=== PATIENT | female | born 1940 | race Caucasian/White ===

== ENCOUNTER → 2018-11-08 | Outpatient (CLI) | payer MEDICARE, OTHER ==
[2018-11-08 15:00] LABS: HCT 44.7 % (34.0-46.0); HGB 13.9 gm/dL (11.4-16.0); Hypochromasia Slight; MCH 29.2 pg (25.0-35.0); MCHC 31.2 g/dL (31.0-37.0); MCV 93.5 fL (80.0-100.0); Mean Platelet Volume 7.2; Platelet Count 372 k/uL (150-450); RBC 4.78 m/uL (3.80-5.40); RDW 14.4 % (11.5-15.5); WBC 7.3 k/uL (3.8-10.6)
[2018-11-08 20:06] LABS: Anion Gap 7.2 mmol/L (4.00-12.00); Carbon Dioxide 26.8 mmol/L (21.6-31.8); Potassium 4.3 mmol/L (3.5-5.5)
== END | disposition home or self-care (01) ==
LOC: LABWHC1 14:03
PROVIDERS: ATTEND Internal Medicine Interventional Cardiology
DX: Z01.812 Encounter for preprocedural laboratory examination (principal); I25.10 Atherosclerotic heart disease of native coronary artery without angina pectoris; I10 Essential (primary) hypertension
CPT/HCPCS: 36415; 80051; 82565; 84520; 85027

== ENCOUNTER 2018-11-25 10:43 | Day surgery (SDC) | payer MEDICARE, OTHER ==
[~2018-11-25 10:43] MED LIST: ALPRAZolam 0.25 MG TAB PO PRN; ALPRAZolam 0.5 MG TAB PO PRN; ASPIRIN 325 MG TAB PO STA; ATORVASTATIN 80 MG TAB PO STA; NITROGLYCERIN SL TABS 0.4 MG TAB SUBLINGUAL PRN; SODIUM CHLORIDE 0.9% 1,000 ML in EMPTY BAG 1 BAG IV ONE
[2018-11-25] MEDS ORDERED: VERAPAMIL 2.5 MG/ML 2 ML AMP ONE (12:43)
[2018-11-25] MEDS ORDERED: HEPARIN SODIUM 1,000 UN/ML (10ML VL) ONE (12:43)
[2018-11-25] MEDS ORDERED: LIDOCAINE 1% INJ 10MG/ML (20 ML MDV) ONE (12:43)
[2018-11-25] MEDS: MIDAZOLAM 2 MG/2 ML VIAL IVP ONE ×2 (13:05→13:14)
[2018-11-25] MEDS ORDERED: LIDOCAINE 1% INJ 10MG/ML (20 ML MDV) SQ ONE (13:14)
[2018-11-25] MEDS ORDERED: BIVALIRUDIN BOLUS 250 MG/50 ML IV ONE (13:36)
[2018-11-25] MEDS ORDERED: BIVALIRUDIN 250 MG in SODIUM CHLORIDE 0.9% 50 ML IV ONE (13:38)
[2018-11-25] MEDS: NITROGLYCERIN 1000MCG/10ML SYRINGE INTRACORON ONE ×3 (13:41→13:48)
[2018-11-25] MEDS ORDERED: IOPAMIDOL-370 100ML BTL INJ ONE ×2 (13:44→14:00)
[2018-11-25] MEDS ORDERED: CLOPIDOGREL 75 MG TAB ONE (13:50)
[2018-11-25] MEDS ORDERED: ZOLPIDEM 5 MG TAB PO PRN (13:52)
[2018-11-25] MEDS ORDERED: MAG HYDROX/AL HYDROX/SIMETH 30 ML CUP PO PRN (13:52)
[2018-11-25] MEDS ORDERED: RX INFO: IV CONTRAST WAS GIVEN 1 EACH MISC MISCELLANE PRN (13:52)
[2018-11-25] MEDS ORDERED: NITROGLYCERIN SL TABS 0.4 MG TAB SUBLINGUAL PRN (13:52)
[2018-11-25] MEDS ORDERED: ATROPINE SULFATE 0.1 MG/ML 10ML SYRINGE IV PRN (13:52)
[2018-11-25] MEDS ORDERED: CLOPIDOGREL 75 MG TAB PO ONE (13:55)
[2018-11-25] MEDS ORDERED: SODIUM CHLORIDE 0.9% 1,000 ML IV SCH (14:00)
[2018-11-25 14:50] VITALS: BMI 26.1
--- NOTE | 2018-11-25 17:58 | CC ---
CARDIAC CATHETERIZATION REPORT DATE OF SERVICE: November 25, 2018 PERFORMING PHYSICIAN: Herber Larson M.D., hand ii blocker. PROCEDURE PERFORMED: 1. Selective left and right coronary angiogram. 2. SVG to diagonal/LAD angiogram. 3. Successful stenting of the mid left circumflex using 2.0 x 12 mm drug-eluting stent with good angiographic results. Reduction of stenosis from 70% to 0%. INDICATION: This is a 78-year-old female patient with history of coronary artery disease and prior coronary artery bypass grafting as well as coronary artery stenting who was experiencing symptoms of exertional dyspnea. She underwent a heart catheterization, which showed inferolateral ischemia and because of that, heart catheterization was advised. APPROACH: Right common femoral artery. COMPLICATIONS: None. LEVEL OF SEDATION: Moderate with sedation length of 38 minutes. PROCEDURE DESCRIPTION: After obtaining an informed consent, the patient was brought to cardiac garage laborer. The right common femoral artery was cannulated using micropuncture technique, the micropuncture wire passed easily. Then I placed a 6-Luxembourger sheath in the right common femoral artery. After that I did selective left and right coronary angiogram using JL4 and JR4 catheters. Left heart catheterization what was not performed. SVG to LAD/diagonal angiogram was performed using the JR4 catheter. At that point, I did intervene on the left circumflex. Please see a separate paragraph for that. SELECTIVE CORONARY ANGIOGRAM: 1. The left main appeared to be angiographically normal. It bifurcates into LAD and left circumflex. 2. The LAD is critically diseased in the proximal portion. 3. The LCX has a tight lesion in the midportion appeared to be in the range of 70%. 4. The right coronary artery is stented in the midportion and the stent is patent. 5. The SVG to diagonal/LAD appeared to be patent. PCI OF THE LEFT CIRCUMFLEX: Anticoagulation was initiated using Angiomax. Subsequently I did engage the left main using XB 35 guide. I did wire the left circumflex using a whisper wire. After that, I did balloon angioplasty using 2.0 x 12 mm balloon before I deployed 2.0 x 12 mm [place] drug-eluting stent where the stent was positioned under fluoroscopy guidance and deployed under 12 atmospheres for 20 seconds with the following angiogram showing good angiographic results. The procedure was completed without any complication. CONCLUSION: 1. Severe triple-vessel coronary artery disease. 2. Patent SVG to diagonal/LAD. 3. Patent stent in the mid RCA. 4. Successful stenting of the mid left circumflex using 2.0 x 12 mm [place] drug-eluting stent with an excellent angiographic results. POSTPROCEDURE MANAGEMENT: 1. Maximize medical treatment. 2. Dual anti-platelet therapy. 3. Follow up with the patient. MMODL / IJN: [id number] /
--- NOTE | 2018-11-25 17:58 | LTR ---
November 25, 2018 To: Dr. Ian Montanez Re: Aurelia Jackcock (1940) Dear Dr. Montanez, Ms. Aurelia Beckwith underwent successful stenting of the left circumflex with good angiographic results and without any complication. Thank you for allowing us to participate in her care. Please do not hesitate to call if you have any question or concern. Sincerely, Herber Lrason M.D. ORACIO / AMI: [id number] /
[2018-11-26 00:14] VITALS: TEMP 98.9
[2018-11-26 05:33] VITALS: RESP 16
[2018-11-26 07:17] LABS: Basophils % (A) 0 %; Eosinophils # (A) 0.4 k/uL (0-0.7); Eosinophils % (A) 5 %; HCT 40.3 % (34.0-46.0); Lymphocytes # (A) 0.9 k/uL (1.0-4.8); Lymphocytes % (A) 13 %; MCHC 32.3 g/dL (31.0-37.0); Mean Platelet Volume 6.9; Monocytes # (A) 0.4 k/uL (0-1.0); Monocytes % (A) 5 %; Neutrophils # (A) 5.3 k/uL (1.3-7.7); Neutrophils % (A) 76 %; Platelet Count 382 k/uL (150-450); RBC 4.48 m/uL (3.80-5.40); RDW 14.5 % (11.5-15.5)
[2018-11-26 07:34] LABS: Anion Gap 5 mmol/L; Blood Urea Nitrogen 12 mg/dL (7-17); Carbon Dioxide 27 mmol/L (22-30); Chloride 106 mmol/L (98-107); Glucose 84 mg/dL (74-99); Potassium 4.1 mmol/L (3.5-5.1); Sodium 138 mmol/L (137-145)
[2018-11-26] MEDS ORDERED: ASPIRIN 325 MG TAB PO STA (08:54)
[2018-11-26] MEDS ORDERED: CLOPIDOGREL 75 MG TAB PO SCH (09:00)
--- NOTE | 2018-11-26 09:33 | DS ---
DISCHARGE SUMMARY DATE OF SERVICE: 11/26/2018 BRIEF HISTORY: This is a pleasant 78-year-old female patient who was experiencing shortness of breath with exertion and underwent myocardial perfusion imaging stress test and that revealed inferolateral ischemia. She was admitted to the hospital yesterday and underwent an angiogram which revealed patent stent in the right coronary artery with severe disease involving the obtuse marginal branch of the left circumflex, which revealed severe disease involving the left circumflex, which was stented with good angiographic results and without any complication. The patient is going to be discharged on dual anti-platelet therapy and I will follow up with the patient in the office. MMODL / IJN: [id number] /
[2018-11-26 10:16] VITALS: BP 110/58; PULSE 75
== END 2018-11-26 09:45 | disposition home or self-care (01) ==
LOC: CATHCVL 10:43 → 3SCARD 13:50 → CATHCVL 11-26 09:45
PROVIDERS: ATTEND Internal Medicine Interventional Cardiology
DX: I25.110 Atherosclerotic heart disease of native coronary artery with unstable angina pectoris (principal); I10 Essential (primary) hypertension; E78.00 Pure hypercholesterolemia, unspecified; Z95.1 Presence of aortocoronary bypass graft; Z95.5 Presence of coronary angioplasty implant and graft; E78.5 Hyperlipidemia, unspecified; Z87.891 Personal history of nicotine dependence; I08.0 Rheumatic disorders of both mitral and aortic valves; I65.21 Occlusion and stenosis of right carotid artery; Z79.82 Long term (current) use of aspirin; Z79.890 Hormone replacement therapy; Z79.899 Other long term (current) drug therapy
CPT/HCPCS: 93455; 80048; 85025; C9600; C1760; C1769 ×5; C1725; C1887; C1894 ×2; C1874; J2250; J2001; J0583; Q9967

== ENCOUNTER → 2019-06-03 | Outpatient (CLI) | payer MEDICARE ==
--- NOTE | 2019-06-03 12:43 | CT ---
EXAMINATION TYPE: CT chest w con DATE OF EXAM: 06/03/2019 COMPARISON: None HISTORY: 78-year-old female Abnormal findings of lung field TECHNIQUE: Contiguous axial scanning of the chest after the administration of 100 ml mL of Isovue 300 . Coronal/sagittal reconstructions performed. CT DLP: 336mGycm. Automatic exposure control utilized for a dose reduction. FINDINGS: Median sternotomy wires are present. Retained epicardial pacer leads. No skeletal changes. Ectatic ascending aorta 3.8 cm. Ectatic upper descending thoracic aorta 3.1 cm. Moderate atherosclero sis calcifications are present focal irregularity along the left lateral aspect of the mid aortic arc h measuring 2.2 cm, likely secondary to plaque ulceration. Refer to axial image 17. No surrounding in flammatory changes. Borderline to mildly enlarged caliber to the main right and left pulmonary arteries at 2.7 and 2.6 cm , respectively, without hydronephrosis. No thoracic lymphadenopathy by CT size criteria. Evaluation lungs show mild interstitial prominence. Stranding hazy areas of atelectasis or scarring at the lung bases. 3 mm peripheral right upper lobe pulmonary nodule, axial image 20. 3 mm calcified granuloma peripheral right mid lung, axial image 22. Larger calcified granuloma at the posterior left base. No consolidation or pleural effusion. Small hiatal hernia. Visualized upper abdomen shows numerous small hypodense lesions within the visu alized upper pole the left kidney, likely cortical cysts. Calcified granulomas within the spleen with out hilar splenule. Bones: Mild anterior wedging T6 has a chronic appearance. Moderate multilevel degenerative disc disea se especially mid thoracic spine. IMPRESSION: 1. Prior granulomatous disease. A 3 mm noncalcified right upper lobe pulmonary nodule may also relate to granulomatous disease. A 6-12 month follow-up is recommended to reassess. 2. Possible underlying pulmonary arterial hypertension. Clinically correlate. 3. Moderate atherosclerotic change throughout the aorta with a focal 2.2 cm area of irregularity manuel g the aortic arch, suspected focal plaque ulceration rather than penetrating atherosclerotic ulcer gi gena the lack of surrounding inflammatory change. Correlate with patient's symptoms.
== END | disposition home or self-care (01) ==
LOC: RADCTMAIN 08:28
PROVIDERS: ATTEND Family Medicine
DX: I70.0 Atherosclerosis of aorta (principal); R91.1 Solitary pulmonary nodule
CPT/HCPCS: 82565; 84520; 71260; 36415; Q9967

== ENCOUNTER 2019-09-28 17:59 | Inpatient (IN) | payer MEDICARE ==
[2019-09-28] MEDS ORDERED: SODIUM CHLORIDE 0.9% 500 ML 500 ML IV STA (18:07)
[2019-09-28] MEDS ORDERED: SODIUM CHLORIDE 0.9% 1,000 ML IV STA ×2 (18:07)
--- NOTE | 2019-09-28 18:07 | ED ---
Neuro HPI - General Stated Complaint: CVA Time Seen by Provider: 09/28/19 18:03 Source: RN notes reviewed, old records reviewed - History of Present Illness Is the patient presenting with stroke symptoms?: Yes -: awoke with symptoms Initial Comments: This is an 79-year-old female DF for evaluation patient with us today for evaluation regarding neurological complaint patient is unable to give history unable to express herself unable to understand questioning from EMS patient was last seen well around 11 AM concerned maybe she was seen around 3 PM but that is difficult to ascertain currently. No family is at bedside and again patient we will give history. EMS was called because a neighbor found patient in the hallway not acting appropriately Location: speech, dysarthria, right arm, right leg History of same: Yes Place: home Severity: moderate Quality: weak Improves With: none Worsens With: none On Anticoagulants: Yes Context: gradual onset Associated Symptoms: denies other symptoms Treatments Prior to Arrival: none - Related Data Home Medications: Home Medications Medication Instructions Recorded Confirmed Aspirin 325 mg PO DAILY 10/28/15 11/25/18 Brimonidine Tartrate/Timolol 1 drop LEFT EYE Q12HR 10/28/15 11/25/18 [Combigan 0.2%/0.5% Ophth Soln] Cholecalciferol [Vitamin D3 (25 2,000 unit PO DAILY 10/28/15 11/25/18 Mcg = 1000 Iu)] Latanoprost Ophth [Xalatan 0.005%] 1 drops BOTH EYES HS 10/28/15 11/25/18 Levothyroxine Sodium [Synthroid] 100 mcg PO QAM 10/28/15 11/25/18 Lovastatin [Mevacor] 40 mg PO HS 10/28/15 11/25/18 Metoprolol Tartrate [Lopressor] 12.5 mg PO BID 10/28/15 11/25/18 Methazolamide [Neptazane] 50 mg PO BID 11/20/18 11/25/18 Previous Rx's Medication Instructions Recorded Clopidogrel [Plavix] 75 mg PO DAILY #90 tab 11/26/18 Allergies/Adverse Reactions: Allergies Allergy/AdvReac Type Severity Reaction Status Date / Time No Known Allergies Allergy Verified 11/20/18 10:23 Review of Systems ROS Statement: Those systems with pertinent positive or pertinent negative responses have been documented in the HPI. ROS Other: All systems not noted in ROS Statement are negative. General Exam - General Exam Comments Initial Comments: NIH of 15 General appearance: alert, in no apparent distress, anxious, in distress Head exam: Present: atraumatic, normocephalic, normal inspection Eye exam: Present: normal appearance, PERRL, EOMI. Absent: scleral icterus, conjunctival injection, periorbital swelling ENT exam: Present: normal exam, mucous membranes moist Neck exam: Present: normal inspection. Absent: tenderness, meningismus, lymphadenopathy Respiratory exam: Present: normal lung sounds bilaterally. Absent: respiratory distress, wheezes, rales, rhonchi, stridor Cardiovascular Exam: Present: regular rate, normal rhythm, normal heart sounds. Absent: systolic murmur, diastolic murmur, rubs, gallop, clicks GI/Abdominal exam: Present: soft, normal bowel sounds. Absent: distended, tenderness, guarding, rebound, rigid Extremities exam: Present: normal inspection, full ROM, normal capillary refill. Absent: tenderness, pedal edema, joint swelling, calf tenderness Back exam: Present: normal inspection Neurological exam: Present: alert, oriented X3, CN II-XII intact Psychiatric exam: Present: normal affect, normal mood Skin exam: Present: warm, dry, intact, normal color. Absent: rash Stroke MDM - Lab Data Result diagrams: 09/28/19 18:02 09/28/19 18:02 Lab Results 09/28/19 09/28/19 09/28/19 Range/Units 18:02 18:02 18:02 WBC 11.3 H (3.8-10.6) k/uL RBC 4.74 (3.80-5.40) m/uL Hgb 13.9 (11.4-16.0) gm/dL Hct 44.3 (34.0-46.0) % MCV 93.6 (80.0-100.0) fL MCH 29.3 (25.0-35.0) pg MCHC 31.3 (31.0-37.0) g/dL RDW 13.9 (11.5-15.5) % Plt Count 448 (150-450) k/uL Neutrophils % 80 % Lymphocytes % 13 % Monocytes % 4 % Eosinophils % 2 % Basophils % 0 % Neutrophils # 9.1 H (1.3-7.7) k/uL Lymphocytes # 1.4 (1.0-4.8) k/uL Monocytes # 0.4 (0-1.0) k/uL Eosinophils # 0.2 (0-0.7) k/uL Basophils # 0.1 (0-0.2) k/uL Hypochromasia Slight PT 10.0 (9.0-12.0) sec INR 1.0 (<1.2) APTT 22.1 (22.0-30.0) sec Sodium (137-145) mmol/L Potassium (3.5-5.1) mmol/L Chloride (98-107) mmol/L Carbon Dioxide (22-30) mmol/L Anion Gap mmol/L BUN (7-17) mg/dL Creatinine (0.52-1.04) mg/dL Est GFR (CKD-EPI)AfAm (>60 ml/min/1.73 sqM) Est GFR (CKD-EPI)NonAf (>60 ml/min/1.73 sqM) Glucose (74-99) mg/dL POC Glucose (mg/dL) (75-99) mg/dL POC Glu Extract Operator ID Calcium (8.4-10.2) mg/dL Total Bilirubin (0.2-1.3) mg/dL AST (14-36) U/L ALT (4-34) U/L Alkaline Phosphatase (38-126) U/L Total Creatine Kinase <20 L (30-135) U/L CK-MB (CK-2) <0.2 (0.0-2.4) ng/mL CK-MB (CK-2) Rel Index Troponin I <0.012 (0.000-0.034) ng/mL Total Protein (6.3-8.2) g/dL Albumin (3.5-5.0) g/dL 09/28/19 09/28/19 Range/Units 18:02 18:03 WBC (3.8-10.6) k/uL RBC (3.80-5.40) m/uL Hgb (11.4-16.0) gm/dL Hct (34.0-46.0) % MCV (80.0-100.0) fL MCH (25.0-35.0) pg MCHC (31.0-37.0) g/dL RDW (11.5-15.5) % Plt Count (150-450) k/uL Neutrophils % % Lymphocytes % % Monocytes % % Eosinophils % % Basophils % % Neutrophils # (1.3-7.7) k/uL Lymphocytes # (1.0-4.8) k/uL Monocytes # (0-1.0) k/uL Eosinophils # (0-0.7) k/uL Basophils # (0-0.2) k/uL Hypochromasia PT (9.0-12.0) sec INR (<1.2) APTT (22.0-30.0) sec Sodium 141 (137-145) mmol/L Potassium 4.0 (3.5-5.1) mmol/L Chloride 107 (98-107) mmol/L Carbon Dioxide 24 (22-30) mmol/L Anion Gap 10 mmol/L BUN 25 H (7-17) mg/dL Creatinine 0.99 (0.52-1.04) mg/dL Est GFR (CKD-EPI)AfAm 62 (>60 ml/min/1.73 sqM) Est GFR (CKD-EPI)NonAf 54 (>60 ml/min/1.73 sqM) Glucose 135 H (74-99) mg/dL POC Glucose (mg/dL) 112 H (75-99) mg/dL POC Glu Extract Operator ID Leigh Huddleston Calcium 9.8 (8.4-10.2) mg/dL Total Bilirubin 0.7 (0.2-1.3) mg/dL AST 25 (14-36) U/L ALT 7 (4-34) U/L Alkaline Phosphatase 63 (38-126) U/L Total Creatine Kinase (30-135) U/L CK-MB (CK-2) (0.0-2.4) ng/mL CK-MB (CK-2) Rel Index Troponin I (0.000-0.034) ng/mL Total Protein 6.8 (6.3-8.2) g/dL Albumin 3.9 (3.5-5.0) g/dL - NIH Stroke Scale 1a. Level of Consciousness: (0) alert 1b. LOC Questions: (2) answers no questions correctly 1c. LOC Commands: (2) performs no tasks correctly 2. Best Gaze: (0) normal 3. Visual: (0) no visual loss 4. Facial Palsy: (0) normal symmetrical movement 5a. Motor Arm Left: (3) no gravity effort 5b. Motor Arm Right: (0) no drift 6a. Motor Leg Left: (3) no gravity effort 6b. Motor Leg Right: (0) no drift 7. Limb Ataxia: (2) present 2 limbs 8. Sensory: (1) mild/moderate sensory loss 9. Best Language: (2) severe aphasia 10. Dysarthria: (1) mild/moderate dysarthria 11. Extinction/Inattention: (0) no abnormality - Thrombolytic Inclusion/Exclusion Thrombolytic Inclusion Criteria: Symptom Onset < 4.5 h, NIH Stroke Scale Deficit (15), Negative CT Scan for ICH - Medical Decision Making 79 female will be admitted for evaluation. Patient presents for stroke deficits, no TPA candidate secondary to age and onset. Patient will be admitted for brilenta and aspirin to have further neurological evaluation - Radiology Data Radiology results: report reviewed (CT brain CTa head neck negative for acute disaese, patient does have 5060 stenosis of carotid), image reviewed - EKG Data -: EKG Interpreted by Me (EKG shows A. fib rate of 76, QRS 84, QTc 443) Past Medical History Past Medical History: Coronary Artery Disease (CAD), Chest Pain / Angina, Eye Disorder, Hyperlipidemia, Hypertension, Thyroid Disorder Additional Past Medical History / Comment(s): 11/02/15 Pt admitted to floor s/p cardiac catheterization-PCI with stent to proximal RCA. Other HX: Intermittent chest discomfort with +stress test, macular degeneration L eye, bilateral caratid disease, L eye with very poor vision, current toothache. History of Any Multi-Drug Resistant Organisms: None Reported Past Surgical History: Appendectomy, Cholecystectomy, Coronary Bypass/CABG, Heart Catheterization, Heart Catheterization With Stent Additional Past Surgical History / Comment(s): 11/02/15 PCI with stent to RCA. Other surgical hx: 4 vessel CABG 2004 with LOPEZ to diagonal, SVG to OM, PDA and PLV, left cataract removed Past Anesthesia/Blood Transfusion Reactions: No Reported Reaction Date of Last Stent Placement:: 11/02/15 Additional Past Alcohol Use History / Comment(s): smokes 1 PPD - started smoking age 17 - Past Family History Mother Family Medical History: Diabetes Mellitus, Eye Disorder Additional Family Medical History / Comment(s): Mother had macular degeneration. She at age 60 yrs. Father Family Medical History: Coronary Artery Disease (CAD), Myocardial Infarction ([place]) Additional Family Medical History / Comment(s): Father of [place] at age 82 or 83 yrs. Course Vital Signs 09/28/19 09/28/19 18:07 19:00 Temperature 98.0 F 97.7 F Pulse Rate 65 81 Respiratory 16 18 Rate Blood Pressure 157/71 139/75 O2 Sat by Pulse 99 97 Oximetry - Reevaluation(s) Reevaluation #1: 09/28/19 19:07 Medical records reviewed Reevaluation #2: 09/28/19 19:07 Stroke was called on admission, patient was seen by stroke Reji no TPA candidate patient will be admitted for aspirin treatment and neurological treatment and evaluation - Consultations Consultation #1: spoke w EM will admit for evaluation and neuro evaluation Critical Care Time Critical Care Time: Yes Total Critical Care Time: 31 Disposition Clinical Impression: Cerebrovascular accident (CVA) Disposition: ADMITTED IP TO THIS [facility] Condition: Critical Is patient prescribed a controlled substance at d/c from ED?: No
[2019-09-28 18:13] LABS: Glucose,Whole Blood 112 mg/dL (75-99)
[2019-09-28 18:21] LABS: Basophils # (A) 0.1 k/uL (0-0.2); Basophils % (A) 0 %; Eosinophils # (A) 0.2 k/uL (0-0.7); Eosinophils % (A) 2 %; HCT 44.3 % (34.0-46.0); HGB 13.9 gm/dL (11.4-16.0); Hypochromasia Slight; Lymphocytes # (A) 1.4 k/uL (1.0-4.8); Lymphocytes % (A) 13 %; MCH 29.3 pg (25.0-35.0); MCHC 31.3 g/dL (31.0-37.0); MCV 93.6 fL (80.0-100.0); Mean Platelet Volume 7.6; Monocytes # (A) 0.4 k/uL (0-1.0); Monocytes % (A) 4 %; Neutrophils # (A) 9.1 k/uL (1.3-7.7); Neutrophils % (A) 80 %; Platelet Count 448 k/uL (150-450); RBC 4.74 m/uL (3.80-5.40); RDW 13.9 % (11.5-15.5); WBC 11.3 k/uL (3.8-10.6)
[2019-09-28 18:30] LABS: Albumin 3.9 g/dL (3.5-5.0); Calcium 9.8 mg/dL (8.4-10.2); Total Bilirubin 0.7 mg/dL (0.2-1.3); Total Protein 6.8 g/dL (6.3-8.2)
--- NOTE | 2019-09-28 18:31 | CT ---
EXAMINATION TYPE: CT brain wo con for TPA DATE OF EXAM: 09/28/2019 COMPARISON: None HISTORY: Neuro deficits. CT DLP: 1102.8 mGycm Automated exposure control for dose reduction was used. Multiple axial sections were obtained of the brain without contrast. There is dcerebral atrophy. This is mostly in the frontal and temporal lobes. There is no mass effect nor midline shift. There is no sign of intracranial hemorrhage. The calvarium is intact. IMPRESSION: Cerebral atrophy. No acute intracranial abnormality.
[2019-09-28 18:42] LABS: Creatine Kinase <20 U/L (30-135)
[2019-09-28 18:44] LABS: Partial Thromboplastin Time 22.1 sec (22.0-30.0)
[2019-09-28 18:54] LABS: Creatine Kinase MB <0.2 ng/mL (0.0-2.4); Troponin I <0.012 ng/mL (0.000-0.034)
--- NOTE | 2019-09-28 19:05 | CT ---
EXAMINATION TYPE: CT angio head neck DATE OF EXAM: 09/28/2019 COMPARISON: None HISTORY: Neuro deficits CT DLP: mGycm Automated exposure control for dose reduction was used. CONTRAST: Performed , patient injected with mL of . There are 3-D post processed images. The contrast was Isovue 65 mL. Images were obtained from the aortic arch to the vertex of the brain. There is normal branching pattern of the great vessels on the aortic arch. Thoracic aorta is atheroma tous. There is bilateral arterial flow in the subclavian arteries. There is arterial flow in both kristel tebral arteries. There is arterial flow in the vertebrobasilar artery system. There is arterial flow in the common internal and external carotid arteries bilaterally. At the mckeon tid artery bifurcations. There is estimated 60% stenosis at the origin right internal carotid artery and 50% stenosis origin of the left internal carotid artery. There is no evidence of carotid or verte bral artery aneurysm or dissection. There is arterial flow in the anterior middle and posterior cerebral arteries. There is no evidence o f intracranial aneurysm or neovascularity. There is no mass effect. There is no sign of pathologic en hancement. There is normal contrast opacification of the venous sinuses. There is no evidence of intr acranial hemodynamic stenosis. IMPRESSION: Negative CT angiogram of the brain. There is moderate plaque formation at the carotid artery bifurcations and estimated 50-60% stenosis o f the origins of the internal carotid arteries.
[2019-09-28] MEDS ORDERED: ASPIRIN 325 MG TAB PO STA (19:08)
[2019-09-28] MEDS ORDERED: TICAGRELOR 90 MG TAB PO STA (19:09)
--- NOTE | 2019-09-28 19:41 | XR ---
EXAMINATION TYPE: XR chest 2V DATE OF EXAM: 09/28/2019 COMPARISON: NONE HISTORY: Altered mental status TECHNIQUE: FINDINGS: Heart is enlarged. There is coarse interstitial pulmonary infiltrates. There are chest lead s. There are are sternal wires. There is no evidence of pleural effusion. IMPRESSION: Pulmonary interstitial fibrosis. Mild heart failure not entirely excluded. Mild cardiomeg jimy.
[2019-09-28] MEDS: SODIUM CHLORIDE 0.9% 1,000 ML IV SCH (19:47)
[2019-09-28] MEDS ORDERED: HYDROmorphone 0.5 MG/0.5 ML SYRINGE IVP PRN (21:25)
[2019-09-28] MEDS ORDERED: LORazepam 2 MG/ML INJ IV PRN (21:25)
--- NOTE | 2019-09-28 23:07 | HP ---
HISTORY AND PHYSICAL DATE OF SERVICE: 09/28/2019 CHIEF COMPLAINT: Weakness of the right side of the body. HISTORY OF PRESENT ILLNESS: This 79-year-old woman with a past medical history of multiple medical problems, history of CAD, history of hypertension, hyperlipidemia, hypothyroidism, being followed Dr. Montanez in the outpatient apparently living with her and the dog. The patient was found to have change in mental status. The patient is unable to talk and the last seen was 11:00 am and around 3:00 pm EMS was called and the patient taken to [facility] and was admitted for evaluation and treatment. Patient has significant weakness of the right side indicating left-sided hemiplegia. The CT scan of the brain done showed cerebral atrophy, no acute abnormality and CT angio was also done in the ER which was negative and 50% stenosis of the origins of internal carotid arteries are noted but, however, the patient was ( ) TPN. The patient will be monitored closely. The patient is admitted for further evaluation and treatment. Stroke code was called and the stroke team recommended aspirin and neurological evaluation. Currently the patient unable to ( ), most of the history was obtained on my discussion with staff and review of chart and as well as discussion with the friends at the bedside. There is no history of trauma. PAST MEDICAL HISTORY: History of chest pain, hypertension, hyperlipidemia, hypothyroidism. HOME MEDICATIONS: 1. Metoprolol 12.5 mg b.i.d. 2. Methazolamide 50 mg p.o. b.i.d. 3. Mevacor 40 mg q.h.s. 4. Synthroid 100 mcg p.o. daily. 5. Xalatan 0.01, one drop both eyes q.h.s. 6. Plavix 75 mg. 7. Vitamin D3 2000 daily. 8. ( ). 9. Aspirin 325 mg daily. ALLERGIES: None. FAMILY HISTORY: History of diabetes and hypothyroidism. SOCIAL HISTORY: Previous history of smoking. No history of alcohol intake. REVIEW OF SYSTEMS: Could not be taken because the patient dysphasic at this time. PHYSICAL EXAM: Pulse is 81, blood pressure 139/75, respiration 18, temperature 97.7, pulse ox 97% on room air. HEENT: Conjunctivae normal. Oral mucosa moist. NECK: No jugular venous distention. No lymph node enlargement. CARDIOVASCULAR: S1, S2. RESPIRATORY: Diminished breath sounds at the bases. No rhonchi, no crackles. ABDOMEN: Soft, nontender. LEGS: No edema, no swelling. NERVOUS SYSTEM: Higher functions mentioned earlier. Unable to cooperate with full neurologic exam. Right side is almost grade 0-1 power. Right upper and lower limbs are flaccid. SKIN: No ulcers. JOINTS; No active deforming active deforming arthropathy. LYMPHATICS: No lymph node in neck or axilla. LAB: WBC 7, hemoglobin 13.9, glucose 135. UA not available. ASSESSMENT: 1. Acute stroke involving the left hemisphere causing the right hemiplegia. 2. Dysphagia caused by stroke. 3. Bilateral internal carotid artery stenosis, about 50-60%. 4. Increased WBC. 5. History of coronary artery disease. 6. History hypertension. 7. Hyperlipidemia. 8. Hypothyroidism. 9. History of coronary artery disease and stent to the proximal RCA. 10.History of coronary artery disease, coronary artery bypass grafting. 11.History of nicotine dependence. RECOMMENDATIONS AND DISCUSSION: In this 79-year-old woman who presented with multiple complex medical issues, we will monitor the patient closely, continue the current management and continue symptomatic treatment, continue with aspirin, neurology evaluation and neuro check. Otherwise, continue with Lipitor. Resume the home medications. Speech pathology evaluation and PT/OT evaluation. Neurology consultation. Guarded prognosis because of multiple complex medical issues. DVT prophylaxis. See orders for details. Further recommendations to follow. MMODL / IJN: [id number] /
[2019-09-28] MEDS: ATORVASTATIN 80 MG TAB PO SCH (23:57)
[2019-09-28] MEDS: PANTOPRAZOLE 40 MG/10 ML VIAL IVP SCH (23:57)
[2019-09-29] MEDS: SODIUM CHLORIDE 0.9% 1,000 ML IV SCH ×2 (06:17→21:49)
[2019-09-29 06:29] LABS: Basophils % (A) 0 %; Eosinophils # (A) 0.2 k/uL (0-0.7); Eosinophils % (A) 3 %; HCT 38.6 % (34.0-46.0); Lymphocytes # (A) 1.4 k/uL (1.0-4.8); Lymphocytes % (A) 19 %; MCH 28.9 pg (25.0-35.0); MCHC 31.1 g/dL (31.0-37.0); Mean Platelet Volume 7.4; Monocytes # (A) 0.5 k/uL (0-1.0); Monocytes % (A) 6 %; Neutrophils # (A) 5.2 k/uL (1.3-7.7); Neutrophils % (A) 70 %; Platelet Count 341 k/uL (150-450); RBC 4.15 m/uL (3.80-5.40); RDW 14.1 % (11.5-15.5); WBC 7.5 k/uL (3.8-10.6)
[2019-09-29 06:41] LABS: African American GFR (CKD) >90 (>60 ml/min/1.73 sqM); Anion Gap 6 mmol/L; Blood Urea Nitrogen 16 mg/dL (7-17); Calcium 8.6 mg/dL (8.4-10.2); Carbon Dioxide 20 mmol/L (22-30); Chloride 114 mmol/L (98-107); Cholesterol 111 mg/dL (<200); Glucose 84 mg/dL (74-99); HDL Cholesterol 44 mg/dL (40-60); LDL Cholesterol,Calculated 53 mg/dL (0-99); Non-African American GFR(CKD) 86 (>60 ml/min/1.73 sqM); Potassium 3.4 mmol/L (3.5-5.1); Sodium 140 mmol/L (137-145); Triglycerides 71 mg/dL (<150)
[2019-09-29] MEDS: TICAGRELOR 90 MG TAB PO SCH ×2 (08:27→21:59)
[2019-09-29] MEDS: ASPIRIN 81 MG PO SCH (08:27)
[2019-09-29] MEDS: HEPARIN SODIUM,PORCINE 5,000 UNIT/ML 1 ML VIAL SQ SCH ×2 (08:27→21:59)
[2019-09-29] MEDS: PANTOPRAZOLE 40 MG/10 ML VIAL IVP SCH (08:27)
--- NOTE | 2019-09-29 10:29 | ECHOF ---
Referral Reason:Thrombus MEASUREMENTS -------- HEIGHT: 162.6 cm WEIGHT: 63.5 kg BP: 128/60 RVIDd: 3.0 cm (< 3.3) IVSd: 1.0 cm (0.6 - 1.1) LVIDd: 4.7 cm (3.9 - 5.3) LVPWd: 1.2 cm (0.6 - 1.1) IVSs: 1.6 cm LVIDs: 3.1 cm LVPWs: 1.4 cm LA Diam: 3.3 cm (2.7 - 3.8) LAESV Index (A-L): 27.92 ml/m Ao Diam: 3.3 cm (2.0 - 3.7) AV Cusp: 2.2 cm (1.5 - 2.6) MV EXCURSION: 15.792 mm (> 18.000) MV EF SLOPE: 21 mm/s (70 - 150) EPSS: 0.6 cm MV E Richard: 0.81 m/s MV DecT: 239 ms MV A Richard: 0.43 m/s MV E/A Ratio: 1.91 AR PHT: 939 ms RAP: 5.00 mmHg RVSP: 39.77 mmHg TAPSE: 15.94 mm FINDINGS -------- Undetermined rhythm. This was a technically adequate study. The left ventricular size is normal. There is borderline concentric left ventricular hypertrophy. Left ventricular systolic function is hyperdynamic with an estimated EF of >70%. The right ventricle is normal in size. Normal LA size by volume 22+/-6 ml/m2. The right atrium is normal in size. Interatrial and interventricular septum intact. Aortic valve is trileaflet and is mildly thickened. There is mild aortic regurgitation. The mitral valve leaflets are mildly thickened. Mild mitral regurgitation is present. Mild tricuspid regurgitation present. There is mild pulmonary hypertension. The right ventricular systolic pressure, as measured by Doppler, is 39.77mmHg. Trace/mild (physiologic) pulmonic regurgitation. The aortic root size is normal. Normal inferior vena cava with normal inspiratory collapse consistent with estimated right atrial pre ssure of 5 mmHg. The inferior vena cava is mildly dilated. There is no pericardial effusion. CONCLUSIONS -------- 1. Undetermined rhythm. 2. This was a technically adequate study. 3. The left ventricular size is normal. 4. There is borderline concentric left ventricular hypertrophy. 5. Left ventricular systolic function is hyperdynamic with an estimated EF of >70%. 6. The right ventricle is normal in size. 7. Normal LA size by volume 22+/-6 ml/m2. 8. The right atrium is normal in size. 9. Interatrial and interventricular septum intact. 10. Aortic valve is trileaflet and is mildly thickened. 11. There is mild aortic regurgitation. 12. The mitral valve leaflets are mildly thickened. 13. Mild mitral regurgitation is present. 14. Mild tricuspid regurgitation present. 15. There is mild pulmonary hypertension. 16. The right ventricular systolic pressure, as measured by Doppler, is 39.77mmHg. 17. Trace/mild (physiologic) pulmonic regurgitation. 18. The aortic root size is normal. 19. Normal inferior vena cava with normal inspiratory collapse consistent with estimated right atrial pressure of 5 mmHg. 20. The inferior vena cava is mildly dilated. 21. There is no pericardial effusion. PARKING ANALYST: Lexi Peralta RDCS
--- NOTE | 2019-09-29 11:50 | P.CNNES ---
History of Present Illness Consult date: 09/29/19 Requesting physician: Peter Pabon Reason for Consult: CVA History of Present Illness: Patient is an 79-year-old female, with history of hypertension, hyperlipidemia, X tobacco use, came to the hospital after she suffered from aphasia and right hemiparesis. Patient was sitting at the table, and patient suddenly fell off the chair, couldn't move her right side. She has to crawl to the front door to get help. It took a lot of effort for her to go to the front door. She started hollering in the hallway, until a neighbor heard her, came over and patient was brought to the hospital. Patient arrived at 6 PM. Patient was noted to be aphasic, with right hemiparesis. Patient's NIH stroke scale was 15. ED staff spoke to the stroke neurologist conductor sleeping car. Patient was considered not a candidate for TPA secondary to age and onset. Patient apparently mentioned in the ER that she has been on the floor for "whole day", although patient's friend, states that patient did mention that she was able to see Mr. Elizabeth on [place] [address], which occurred at 4 PM. Patient overnight was still aphasic and right hemipar etic, but this morning she has improved remarkably. Patient denies headache. Patient states her right arm is still slightly weak, but right leg is back to normal. Patient had a computed tomography scan of head, which revealed cerebral atrophy with no acute process. CTA of head and neck showed moderate plaque formation at the carotid artery bifurcations an estimated 50-60% stenosis of the origins of the internal carotid arteries. EKG showed atrial fibrillation with premature ventricular or aberrantly conducted complexes. Chest x-ray showed pulmonary interstitial fibrosis. Mild heart failure not entirely excluded. Mild cardiomegaly. Patient had a 2-D echo performed, which revealed undetermined rhythm. EF is > 70%. Normal left atrial size. Interatrial and interventricular septum intact. Mild aortic regurgitation. Patient's cholesterol is 111, LDL 53, HDL 44 and triglycerides 71. CBC is normal. Renal functions normal. Patient has history of hypertension, hyperlipidemia, tobacco use or 58 pack years as per notes of primary physician. Patient quit tobacco about 5-6 years ago. Review of Systems Completely unremarkable denies any headache, complains of right arm weakness. Denies chest pain. She does have some shortness of breath and wheezing noted. No peripheral edema. No carotid bruit. Past Medical History Past Medical History: Coronary Artery Disease (CAD), Chest Pain / Angina, Eye Disorder, Hyperlipidemia, Hypertension, Thyroid Disorder Additional Past Medical History / Comment(s): 11/02/15 Pt admitted to floor s/p cardiac catheterization-PCI with stent to proximal RCA. Other HX: Intermittent chest discomfort with +stress test, macular degeneration L eye, jordan ateral caratid disease, L eye with very poor vision, current toothache. History of Any Multi-Drug Resistant Organisms: None Reported Past Surgical History: Appendectomy, Cholecystectomy, Coronary Bypass/CABG, Heart Catheterization, Heart Catheterization With Stent Additional Past Surgical History / Comment(s): 11/02/15 PCI with stent to RCA. Other surgical hx: 4 vessel CABG 2004 with LOPEZ to diagonal, SVG to OM, PDA and PLV, left cataract removed Past Anesthesia/Blood Transfusion Reactions: No Reported Reaction Date of Last Stent Placement:: 11/02/15 Past Psychological History: No Psychological Hx Reported Additional Psychological History / Comment(s): Pt resides alone. She is independent. She uses no assistive device. She drives. She has a dog in the home. Smoking Status: Former smoker Past Alcohol Use History: None Reported Additional Past Alcohol Use History / Comment(s): smokes 1 PPD - started smoking age 17 Past Drug Use History: None Reported - Past Family History Mother Family Medical History: Diabetes Mellitus, Eye Disorder Additional Family Medical History / Comment(s): Mother had macular degeneration. She at age 60 yrs. Father Family Medical History: Coronary Artery Disease (CAD), Myocardial Infarction (MA) Additional Family Medical History / Comment(s): Father of MA at age 82 or 83 yrs. Medications and Allergies Home Medications Medication Instructions Recorded Confirmed Type Aspirin 325 mg PO DAILY 10/28/15 09/29/19 History Cholecalciferol [Vitamin D3 (25 2,000 unit PO DAILY 10/28/15 09/29/19 History Mcg = 1000 Iu)] Latanoprost Ophth [Xalatan 0.005%] 1 drops BOTH EYES HS 10/28/15 11/25/18 History Levothyroxine Sodium [Synthroid] 100 mcg PO QAM 10/28/15 09/29/19 History Lovastatin [Mevacor] 40 mg PO HS 10/28/15 09/29/19 History Methazolamide [Neptazane] 50 mg PO BID 11/20/18 09/29/19 History Clopidogrel [Plavix] 75 mg PO DAILY #90 tab 11/26/18 09/29/19 Rx Albuterol Inhaler [Ventolin Hfa 2 puff INHALATION RT-QID PRN 09/29/19 09/29/19 History Inhaler] Dorzolamide HCl/Pf [Dorzolamide 2% 1 drop LEFT EYE TID 09/29/19 09/29/19 History Eye Drop] Fluticasone Nasal [place] [Flonase 1 spray EA NOSTRIL DAILY 09/29/19 09/29/19 History Nasal [place]] Fluticasone Propionate [Flovent 2 puff INHALATION RT-BID 09/29/19 09/29/19 History Hfa 110 mcg] Metoprolol Tartrate 12.5 mg PO BID 09/29/19 09/29/19 History Timolol Maleate [Timolol Maleate 1 applic LEFT EYE BID 09/29/19 09/29/19 History 0.5% Ophth Gel] Allergies Allergy/AdvReac Type Severity Reaction Status Date / Time No Known Allergies Allergy Verified 09/29/19 10:24 Physical Examination - Vital Signs Vital Signs: Vital Signs Temp Pulse Pulse Resp BP BP Pulse Ox 09/29/19 08:00 97.8 F 61 16 129/62 99 09/29/19 04:00 97.3 F L 66 18 128/60 96 09/29/19 00:00 97.8 F 69 18 120/58 99 09/28/19 21:03 98.2 F 69 18 155/72 100 09/28/19 21:00 98.2 F 69 18 155/72 100 09/28/19 20:29 77 18 131/65 09/28/19 19:00 97.7 F 81 18 139/75 97 09/28/19 18:07 98.0 F 65 16 157/71 99 Intake and Output 09/28/19 09/29/19 09/29/19 22:59 06:59 14:59 Intake Total 120 Output Total 350 Balance -230 Intake: Oral 120 Output: Urine 350 Other: Voiding Method Bedpan Bedpan # Voids 1 1 Weight 58.967 kg 63.6 kg On examination patient is an elderly female, in no acute distress. She has mild rhonchi noted. Mild wheezing. Her speech is clear, with no significant aphasia or dysarthria. Patient can name all objects presented, has mild to moderate difficulty with repetition, follows commands very well. Patien t has occasional paraphasic errors noted. Attention, concentration and fund of knowledge is adequate. On cranial nerve examination, pupils are round and reacting to light, visual turner are full on confrontation, extraocular muscles are intact with no nystagmus. Face is symmetric, tongue protrudes the midline. Palatal elevation and sensation normal. On muscle strength testing patient has mild right foot pronation no drift. The strength is normal in the left arm and both legs. In the right upper limb patient has about 5-proximally and distally. Sensory touch is slightly decreased on the right as compared to left. No ataxia for [id number] tone and bulk of muscles normal. Gait deferred. Results - Laboratory Findings CBC and BMP: 09/29/19 05:40 09/29/19 05:40 Abnormal Lab Findings: Abnormal Labs 09/28/19 09/28/19 09/28/19 18:02 18:02 18:02 WBC 11.3 H Neutrophils # 9.1 H Potassium Chloride Carbon Dioxide BUN 25 H Glucose 135 H POC Glucose (mg/dL) Total Creatine Kinase <20 L 09/28/19 09/29/19 18:03 05:40 WBC Neutrophils # Potassium 3.4 L Chloride 114 H Carbon Dioxide 20 L BUN Glucose POC Glucose (mg/dL) 112 H Total Creatine Kinase Assessment and Plan Assessment: * 79-year-old female admitted with an acute ischemic CVA involving left MCA vascular territory. Her NIH stroke scale on admission was 15, but now is 2. Patient did not receive TPA. * New onset atrial fibrillation * Hypertension * Hyperlipidemia, well controlled * X tobacco user. Plan: * Patient has suffered from an acute CVA, most likely embolic. Patient however has recovered very well conservatively. Patient did not receive TPA. We will perform stat MRI of the brain to evaluate for the extent of CVA and rule out any hemorrhagic transformation. If negative, then patient will be a candidate for anticoagulation. * Patient at present has been started on aspirin 81 mg and Brilinta 90 mg twice a day. * Permissive hypertension for 24-48 hours. * Hemoglobin A1c. * DVT prophylaxis. * PT OT, speech therapy. * Neurology will follow.
--- NOTE | 2019-09-29 14:30 | P.PN ---
Subjective Progress Note Date: 09/29/19 Principal diagnosis: This is an 79-year-old female who was recently admitted for change in mental status with significant right side weakness indicating left-sided hemiplegia and is being closely monitored. Neurology is following. Patient is scheduled to undergo an MRI today and is currently pending. Patient underwent an echo today showing left ventricular systolic function is hyperdynamic with an estimated EF of over 70% with some mild mitral and tricuspid regurgitation present. Patient is able to lift her right arm and right leg and is still experiencing some weakness. PT/OT to evaluate the patient. Review of systems: Cardiovascular: No reports of chest pain or palpitations Respiratory: No reports of shortness of breath or cough GI: No reports of nausea, vomiting, or diarrhea : No reports of dysuria or retention Neurological: Reports some right side weakness with improvement from yesterday, no reports of dysphagia Active Medications Generic Name Dose Route Start Last Admin Trade Name Freq PRN Reason Stop Dose Admin Aspirin 81 mg 09/29/19 09:00 09/29/19 08:27 Aspirin PO 81 mg DAILY NEO Administration Atorvastatin Calcium 80 mg 09/28/19 21:00 09/28/19 23:57 Lipitor PO 80 mg HS NEO Administration Heparin Sodium (Porcine) 5,000 unit 09/29/19 09:00 09/29/19 08:27 Heparin SQ 5,000 unit Q12HR NEO Administration Hydromorphone HCl 0.5 mg 09/28/19 21:25 Dilaudid IVP Q4HR PRN Severe Pain Sodium Chloride 1,000 mls @ 100 mls/hr 09/28/19 19:15 09/29/19 06:17 Saline 0.9% IV 100 mls/hr .Q10H NEO Administration Lorazepam 1 mg 09/28/19 21:25 Ativan IV Q6HR PRN Anxiety Pantoprazole Sodium 40 mg 09/30/19 07:30 Protonix PO AC-BRKFST NEO Ticagrelor 90 mg 09/29/19 09:00 09/29/19 08:27 Brilinta PO 90 mg BID NEO Administration Objective - Vital Signs Vital signs: Vital Signs Temp 97.8 F 09/29/19 08:00 Pulse 61 09/29/19 08:00 Resp 16 09/29/19 08:00 BP 129/62 09/29/19 08:00 Pulse Ox 99 09/29/19 08:00 Intake & Output 09/28/19 09/29/19 09/29/19 18:59 06:59 18:59 Intake Total 120 Output Total 350 Balance -230 Weight 58.967 kg 63.6 kg Intake: Oral 120 Output: Urine 350 Other: Voiding Method Bedpan # Voids 1 1 - Exam Gen: This is a 79-year-old female sitting up in bed, awake, alert and oriented 3, well-nourished, well-developed. Temp is 97.8F, pulse is 61, respirations are 16, blood pressure is 129/62, oxygen saturation is 99% on room air. HEENT: Head is atraumatic, normocephalic. Pupils equal, round. Sclerae is anicteric. NECK: Supple. No JVD. No lymphadenopathy. No thyromegaly. LUNGS: Diminished breath sounds at the bases with no rhonchi or wheezing noted. No intercostal retractions. HEART: S1, S2 are muffled ABDOMEN: Soft. Bowel sounds are present. No masses. No tenderness. EXTREMITIES: No pedal edema. No calf tenderness. Right side upper and lower extremity shows marked improvement from yesterday 4-5 strength NEUROLOGICAL: Patient is awake, alert and oriented x3. Cranial nerves 2 through 12 are grossly intact. - Labs CBC & Chem 7: 09/29/19 05:40 09/29/19 05:40 Labs: Abnormal Lab Results - Last 24 Hours (Table) 09/28/19 09/28/19 09/28/19 Range/Units 18:02 18:02 18:02 WBC 11.3 H (3.8-10.6) k/uL Neutrophils # 9.1 H (1.3-7.7) k/uL Potassium (3.5-5.1) mmol/L Chloride (98-107) mmol/L Carbon Dioxide (22-30) mmol/L BUN 25 H (7-17) mg/dL Glucose 135 H (74-99) mg/dL POC Glucose (mg/dL) (75-99) mg/dL Total Creatine Kinase <20 L (30-135) U/L 09/28/19 09/29/19 Range/Units 18:03 05:40 WBC (3.8-10.6) k/uL Neutrophils # (1.3-7.7) k/uL Potassium 3.4 L (3.5-5.1) mmol/L Chloride 114 H (98-107) mmol/L Carbon Dioxide 20 L (22-30) mmol/L BUN (7-17) mg/dL Glucose (74-99) mg/dL POC Glucose (mg/dL) 112 H (75-99) mg/dL Total Creatine Kinase (30-135) U/L Assessment and Plan Assessment: Acute stroke involving the left hemisphere causing the right hemiplegia Dysphagia caused by stroke Bilateral internal carotid artery stenosis about 50-60% Increased WBC History of coronary artery disease and history of hypertension Hyperlipidemia Hypothyroidism History of coronary artery disease and stent to the proximal RCA History of coronary artery disease, coronary artery bypass grafting History of nicotine dependence Recommendations and discussion: Recommend to continue current medications, management, and symptomatic treatment. Patient is maintaining an 81 mg aspirin and will continue at this time. Patient awaiting MRI of the brain and is pending at this time. Will determine for possible anticoagulation once MRI has been resulted. Neurology is following. Speech pathology along with PT/OT to evaluate the patient. Due to multiple complex medical issues, prognosis is guarded. Further recommendations to follow.
--- NOTE | 2019-09-29 14:59 | MR ---
EXAMINATION TYPE: MR brain wo con DATE OF EXAM: 09/29/2019 COMPARISON: CT scan 09/28/2019 HISTORY: confustion, CVA TECHNIQUE: T1-weighted sagittal, T2, FLAIR, and diffusion axial, and T2 coronal coronal views of the brain are submitted. FINDINGS: There is a large area of abnormal signal involving the left temporal and parietal lobe compatible wit h acute ischemia. Smaller foci of cortical involvement involving the superior parietal cortex also no emily. No midline shift. Mild generalized degenerative change seen with several areas of abnormal signal the white matter most typical remote microvascular ischemia. Area of abnormal signal involving the right temporal lobe is compatible with remote ischemia. Craniocervical junction maintained. Partially empty sella turcica noted. Changes of chronic sinusitis noted. Orbits are symmetric in appearance. Area of abnormal signal involving the melba is suggestive of remot e infarct. IMPRESSION: 1. Large area of acute ischemic change involving the left temporal and parietal lobes. Correlate clin ically. Report called to the patient's nurse. 2. Degenerative and nonspecific white matter changes most typical of remote microvascular ischemia.
[2019-09-29] MEDS: ATORVASTATIN 80 MG TAB PO SCH (21:59)
[2019-09-30] MEDS: SODIUM CHLORIDE 0.9% 1,000 ML IV SCH ×3 (03:04→20:38)
[2019-09-30] MEDS: PANTOPRAZOLE 40 MG TABLET PO SCH (06:23)
[2019-09-30 06:35] LABS: Basophils % (A) 0 %; Eosinophils # (A) 0.4 k/uL (0-0.7); Eosinophils % (A) 5 %; HCT 38.4 % (34.0-46.0); HGB 12.2 gm/dL (11.4-16.0); Lymphocytes # (A) 1.4 k/uL (1.0-4.8); Lymphocytes % (A) 21 %; MCH 29.2 pg (25.0-35.0); MCHC 31.9 g/dL (31.0-37.0); MCV 91.4 fL (80.0-100.0); Mean Platelet Volume 7.3; Monocytes # (A) 0.4 k/uL (0-1.0); Monocytes % (A) 6 %; Neutrophils # (A) 4.6 k/uL (1.3-7.7); Neutrophils % (A) 66 %; Platelet Count 386 k/uL (150-450); RDW 14.1 % (11.5-15.5); WBC 6.9 k/uL (3.8-10.6)
[2019-09-30 06:55] LABS: African American GFR (CKD) >90 (>60 ml/min/1.73 sqM); Anion Gap 6 mmol/L; Blood Urea Nitrogen 11 mg/dL (7-17); Calcium 8.7 mg/dL (8.4-10.2); Carbon Dioxide 21 mmol/L (22-30); Chloride 113 mmol/L (98-107); Glucose 84 mg/dL (74-99); Non-African American GFR(CKD) 87 (>60 ml/min/1.73 sqM); Potassium 3.4 mmol/L (3.5-5.1); Sodium 140 mmol/L (137-145)
[2019-09-30] MEDS: TICAGRELOR 90 MG TAB PO SCH ×2 (09:44→20:38)
[2019-09-30] MEDS: HEPARIN SODIUM,PORCINE 5,000 UNIT/ML 1 ML VIAL SQ SCH ×2 (09:44→20:38)
[2019-09-30] MEDS: ASPIRIN 81 MG PO SCH (09:44)
--- NOTE | 2019-09-30 11:02 | P.PN ---
Subjective Progress Note Date: 09/30/19 Agent was seen for a follow-up. Patient's daughter from [place] was also present. Patient states she is feeling better. She is using her right arm more. Offers no new complaints. Objective - Vital Signs Vital signs: Vital Signs Temp 97.9 F 09/30/19 00:00 Pulse 76 09/30/19 04:00 Resp 17 09/30/19 04:00 BP 128/59 09/30/19 04:00 Pulse Ox 95 09/30/19 04:00 Intake & Output 09/29/19 09/30/19 09/30/19 18:59 06:59 18:59 Intake Total 240 240 Output Total 350 550 Balance -110 -550 240 Weight 63.1 kg Intake: Oral 240 240 Output: Urine 350 550 Other: Voiding Method Toilet # Voids 1 1 - Exam On examination patient is alert and awake fully oriented. Speech is mildly dysarthric. No obvious aphasia. Patient can repeat much better than yesterday. Patient can name objects presented 3 out of 3. Her comprehension and expressi on is intact. On cranial nerve examination pupils are round and reacting, visual turner are full, face is symmetric. No visual field neglect on double simultaneous stimulation. On muscle strength testing, patient has been mild right up for drift but no pronation. Strength is equal. Sensation is equal, although patient does neglect right side on double simultaneous stimulation. No ataxia. Tone and bulk of muscles normal - Labs CBC & Chem 7: 09/30/19 06:08 09/30/19 06:08 Labs: Abnormal Lab Results - Last 24 Hours (Table) 09/30/19 Range/Units 06:08 Potassium 3.4 L (3.5-5.1) mmol/L Chloride 113 H (98-107) mmol/L Carbon Dioxide 21 L (22-30) mmol/L Assessment and Plan Assessment: * 79-year-old female admitted with an acute ischemic CVA involving left MCA vascular territory. Her NIH stroke scale on admission was 15, but now is 3 (one point each for dysarthria, right arm drift and sensory neglect), stable as compared to yesterday. * New onset atrial fibrillation * Hypertension * Hyperlipidemia, well controlled * X tobacco user. Plan: * MRI of the brain reported as large area of acute ischemic change involving the left temporal and parietal lobes. Correlate clinically. No obvious hemorrhagic transformation noted. On my review appears moderate size. Based upon the size of the stroke, would hold off anticoagulation for another 24 hours before recommending anticoagulation, due to concerns of hemorrhagic transformation. Repeat computed tomography scan of head in the morning. 2-D echo showed no evidence of left ventricular thrombus, therefore no real urgency. * Patient at present has been started on aspirin 81 mg and Brilinta 90 mg twice a day. * Jorge signs are stable, with blood pressure 128/59, pulse rate 76. * Hemoglobin A1c. * DVT prophylaxis. * Speech therapy. * Discussed with patient's daughter in detail.
[2019-09-30 14:02] VITALS: BMI 23.8
--- NOTE | 2019-09-30 14:28 | P.PN ---
Subjective Progress Note Date: 09/30/19 Principal diagnosis: This is an 79-year-old female who was recently admitted for change in mental status with significant right side weakness indicating left-sided hemiplegia and is being closely monitored. Neurology is following. Patient is scheduled to undergo an MRI today and is currently pending. Patient underwent an echo today showing left ventricular systolic function is hyperdynamic with an estimated EF of over 70% with some mild mitral and tricuspid regurgitation present. Patient is able to lift her right arm and right leg and is still experiencing some weakness. PT/OT to evaluate the patient. 09/30/2019 Patient seen and evaluated in follow-up today with daughter at the bedside. Patient underwent an MRI of the brain yesterday showing a large area of acute ischemic change involving the left temporal and parietal lobes. Patient is maintained on [place] to along with aspirin 81 mg and will continue at this time. PT/OT along with speech pathology following and recommending subacute therapy for continued strength and mobility along with cognition therapy. Case management and social work are following and awaiting authorization to [facility]. Will continue to monitor closely. No reports of chest pain, palpitations, or shortness of breath. Patient is afebrile. No reports of nausea or vomiting and patient is tolerating diet. Objective - Vital Signs Vital signs: Vital Signs Temp 98.1 F 09/30/19 08:00 Pulse 65 09/30/19 12:00 Resp 16 09/30/19 12:00 BP 129/73 09/30/19 12:00 Pulse Ox 97 09/30/19 12:00 Intake & Output 09/29/19 09/30/19 09/30/19 18:59 06:59 18:59 Intake Total 240 240 Output Total 350 550 Balance -110 -550 240 Weight 63.1 kg 63.1 kg Intake: Oral 240 240 Output: Urine 350 550 Other: Voiding Method Toilet Toilet # Voids 1 1 1 - Exam Gen: This is a 79-year-old female sitting up in bed, awake, alert and oriented 3, well-nourished, well-developed. Temp is 98.1, pulse is 74, respirations are 16, blood pressure is 128/69, oxygen saturation is 96% on room air. HEENT: Head is atraumatic, normocephalic. Pupils equal, round. Sclerae is anicteric. NECK: Supple. No JVD. No lymphadenopathy. No thyromegaly. LUNGS: Diminished breath sounds at the bases with no rhonchi or wheezing noted. No intercostal retractions. HEART: S1, S2 are muffled ABDOMEN: Soft. Bowel sounds are present. No masses. No tenderness. EXTREMITIES: No pedal edema. No calf tenderness. Right side upper and lower extremity continues to show improvement from yesterday 4-5 strength NEUROLOGICAL: Patient is awake, alert and oriented x3. Cranial nerves 2 through 12 are grossly intact. Mild diffuse weakness - Labs CBC & Chem 7: 09/30/19 06:08 09/30/19 06:08 Labs: Abnormal Lab Results - Last 24 Hours (Table) 09/30/19 Range/Units 06:08 Potassium 3.4 L (3.5-5.1) mmol/L Chloride 113 H (98-107) mmol/L Carbon Dioxide 21 L (22-30) mmol/L Assessment and Plan Assessment: Acute stroke involving the left hemisphere causing the right hemiplegia Dysphagia caused by stroke Bilateral internal carotid artery stenosis about 50-60% Increased WBC History of coronary artery disease and history of hypertension Hyperlipidemia Hypothyroidism History of coronary artery disease and stent to the proximal RCA History of coronary artery disease, coronary artery bypass grafting History of nicotine dependence Recommendations and discussion: Recommend to continue current medications, management, and symptomatic treatment. Patient is maintaining an 81 mg aspirin and will continue at this time. Patient underwent MRI of the brain as mentioned previously and will continue to hold on anticoagulation at this time. Appreciate neurology recommendations. Will continue with aspirin 81 mg along with Brilinta. Speech pathology along with PT/OT evaluated the patient and recommending subacute rehab. Case management and social work are following and awaiting authorization to [facility]. Due to multiple complex medical issues, prognosis is guarded. Further recommendations to follow. Possible discharge in 24-48 hours.
--- NOTE | 2019-09-30 15:41 | CDI ---
Documentation Clarification Form Date: 09/30/2019 03:31:42 PM From: Marisela Terry RN, CCDS Admit Date: 09/28/2019 07:08:00 PM Patient Name: Aurelia Beckwith Visit Number: [id number] ATTENTION: The Clinical Documentation Specialists (CDI) and [facility] Coding Staff appreciate your assistance in clarifying documentation. Please respond to the clarification below the line at the bottom and electronically sign. The CDI & [facility] Coding staff will review the response and follow-up if needed. Please note: Queries are made part of the Legal Health Record. If you have any questions, please contact the author of this message via ITS. Dr. Donald Savage New Onset Atrial Fibrillation is documented in the Neurology consult and progress note and requires confirmation and specificity from the attending MD. History/Risk Factors: HTN, CAD, Hypothyroidism Clinical Indicators: EKG/telemetry: Atrial Fib Treatment: Consults: No cardiology Consult Brillinta 90 mg Po BID 1.5 L 0.9% NS In your professional opinion, can you please clarify the type of Atrial Fibrillation, if known? Chronic/Permanent Paroxysmal Persistent Other, please specify Unable to determine (Last Revision: November 2017) Chronic/Permanent MTDD
[2019-09-30 17:52] LABS: Hemoglobin A1C 5.6 % (4.0-6.0)
[2019-09-30] MEDS: ATORVASTATIN 80 MG TAB PO SCH (20:38)
[2019-10-01 07:52] VITALS: TEMP 98
[2019-10-01 08:39] LABS: Basophils % (A) 0 %; Eosinophils # (A) 0.4 k/uL (0-0.7); Eosinophils % (A) 6 %; HCT 40.8 % (34.0-46.0); HGB 12.7 gm/dL (11.4-16.0); Lymphocytes # (A) 1.6 k/uL (1.0-4.8); Lymphocytes % (A) 23 %; MCH 28.6 pg (25.0-35.0); MCHC 31.1 g/dL (31.0-37.0); Mean Platelet Volume 7.4; Monocytes # (A) 0.4 k/uL (0-1.0); Monocytes % (A) 5 %; Neutrophils # (A) 4.5 k/uL (1.3-7.7); Neutrophils % (A) 65 %; Platelet Count 357 k/uL (150-450); RBC 4.43 m/uL (3.80-5.40); RDW 14.1 % (11.5-15.5); WBC 6.9 k/uL (3.8-10.6)
[2019-10-01 09:01] LABS: African American GFR (CKD) >90 (>60 ml/min/1.73 sqM); Anion Gap 7 mmol/L; Blood Urea Nitrogen 13 mg/dL (7-17); Calcium 9.3 mg/dL (8.4-10.2); Carbon Dioxide 24 mmol/L (22-30); Chloride 109 mmol/L (98-107); Glucose 136 mg/dL (74-99); Non-African American GFR(CKD) 84 (>60 ml/min/1.73 sqM); Potassium 3.6 mmol/L (3.5-5.1); Sodium 140 mmol/L (137-145)
[2019-10-01] MEDS: HEPARIN SODIUM,PORCINE 5,000 UNIT/ML 1 ML VIAL SQ SCH (09:14)
[2019-10-01] MEDS: ASPIRIN 81 MG PO SCH (09:14)
[2019-10-01] MEDS: PANTOPRAZOLE 40 MG TABLET PO SCH (09:14)
[2019-10-01] MEDS: SODIUM CHLORIDE 0.9% 1,000 ML IV SCH (09:15)
[2019-10-01] MEDS: TICAGRELOR 90 MG TAB PO SCH (09:15)
--- NOTE | 2019-10-01 11:41 | P.DS ---
Providers Date of admission: 09/28/19 19:08 Expected date of discharge: 10/01/19 Attending physician: Dayron Kolb Consults: 09/28/19 19:08 Consult Physician Routine Consulting Provider: Annelise Gilman Consult Reason/Comments: cva Do you want consulting provider notified?: Yes Primary care physician: [facility] Course: Hospital course: This very pleasant 79-year-old patient admitted with right-sided weakness. Initial computed tomography scan of the brain showed some cerebral atrophy. CT angiogram to brain was unremarkable. With 50-60% stenosis of the origin of the internal carotid arteries. 2-D echo showed EF of current and 70%. MRI of the brain did confirm area of acute ischemic change involving the left temporal/parietal lobe. Patient seen by this. There has been some thought finding difficulty. Patient has been using a rolling walker. On the right side is better now to 4/5. EKG showed flutter fibrillation Today-patient daughter the bedside. Care was discussed in detail with her. Including anticoagulation pros and cons. Discussed with Dr. Rosa from neurology. Patient's will be kept on aspirin and xarelto will be added starting today. Patient will follow with neurology and cardiology as outpatient. Discussion and discharge planning more than 35 minutes On examination: VITAL SIGNS: [98, 60, 22, 126/76, 95% room air] GENERAL APPEARANCE: Average build. Sitting comfortable in bed, comfortable. HEENT: Normal external appearance of nose and ear. Oral cavity normal EYES: Pupils equal. Conjunctiva normal. RESPIRATORY: Respiratory effort normal. Lungs clear to auscultation. CARDIOVASCULAR: First and second sounds normal. No edema. ABDOMEN: Soft. Liver and spleen not palpable. No tenderness. No mass palpable. NEUROLOGICAL: Power on the right side is 4/5 PSYCHIATRY: Answering simple questions. Investigations: White count 6.9 hemoglobin 12.7 potassium 3.6 creatinine 0.66 LDL 53 EKG-flutter fibrillation Other radiological studies as above Assessment: -Acute stroke in the left temporoparietal lobe, possibly embolic -Persistent atrial flutter fibrillation -Coronary artery disease with stent -Essential hypertension -Hyperlipidemia -Hypothyroid -DO NOT RESUSCITATE Disposition: [facility] Patient Condition at Discharge: Fair Plan - Discharge Summary Discharge Rx Participant: No New Discharge Prescriptions: New Aspirin 81 mg PO DAILY chew Atorvastatin [Lipitor] 80 mg PO HS tab Rivaroxaban [Xarelto] 20 mg PO AC-SUPPER #1 tab Continue Latanoprost Ophth [Xalatan 0.005%] 1 drops BOTH EYES HS Levothyroxine Sodium [Synthroid] 100 mcg PO QAM Cholecalciferol [Vitamin D3 (25 Mcg = 1000 Iu)] 2,000 unit PO DAILY Methazolamide [Neptazane] 50 mg PO BID Timolol Maleate [Timolol Maleate 0.5% Ophth Gel] 1 applic LEFT EYE BID Metoprolol Tartrate 12.5 mg PO BID Albuterol Inhaler [Ventolin Hfa Inhaler] 2 puff INHALATION RT-QID PRN PRN Reason: Shortness Of Breath Fluticasone Propionate [Flovent Hfa 110 mcg] 2 puff INHALATION RT-BID Fluticasone Nasal [place] [Flonase Nasal [place]] 1 spray EA NOSTRIL DAILY Dorzolamide HCl/Pf [Dorzolamide 2% Eye Drop] 1 drop LEFT EYE TID Discontinued Lovastatin [Mevacor] 40 mg PO HS Aspirin 325 mg PO DAILY Clopidogrel [Plavix] 75 mg PO DAILY #90 tab Discharge Medication List Cholecalciferol [Vitamin D3 (25 Mcg = 1000 Iu)] 2,000 unit PO DAILY 10/28/15 [History] Latanoprost Ophth [Xalatan 0.005%] 1 drops BOTH EYES HS 10/28/15 [History] Levothyroxine Sodium [Synthroid] 100 mcg PO QAM 10/28/15 [History] Methazolamide [Neptazane] 50 mg PO BID 11/20/18 [History] Albuterol Inhaler [Ventolin Hfa Inhaler] 2 puff INHALATION RT-QID PRN 09/29/19 [History] Dorzolamide HCl/Pf [Dorzolamide 2% Eye Drop] 1 drop LEFT EYE TID 09/29/19 [History] Fluticasone Nasal [place] [Flonase Nasal [place]] 1 spray EA NOSTRIL DAILY 09/29/19 [History] Fluticasone Propionate [Flovent Hfa 110 mcg] 2 puff INHALATION RT-BID 09/29/19 [History] Metoprolol Tartrate 12.5 mg PO BID 09/29/19 [History] Timolol Maleate [Timolol Maleate 0.5% Ophth Gel] 1 applic LEFT EYE BID 09/29/19 [History] Aspirin 81 mg PO DAILY chew 10/01/19 [Rx] Atorvastatin [Lipitor] 80 mg PO HS tab 10/01/19 [Rx] Rivaroxaban [Xarelto] 20 mg PO AC-SUPPER #1 tab 10/01/19 [Rx] Follow up Appointment(s)/Referral(s): None,Stated [REFERRING] - 1-2 days Ian Montanez DO [Primary Care Provider] - 1-2 Days Herber Larson MD [STAFF PHYSICIAN] - 1 Week Luis Daniel Johns MD [STAFF PHYSICIAN] - 1 Week
[2019-10-01 12:43] VITALS: BP 129/80; PULSE 69; RESP 18
--- NOTE | 2019-10-01 12:52 | CT ---
EXAMINATION TYPE: CT brain wo con DATE OF EXAM: 10/01/2019 COMPARISON: Correlation MRI 09/29/2019 HISTORY: 79 year-old female follow-up CVA, rule out bleed. TECHNIQUE: Examination was done in axial plane without intravenous contrast. Coronal and sagittal r econstructions performed. CT DLP: 1141 mGycm Automated exposure control for dose reduction was used. FINDINGS: Focal hypodensity left frontoparietal junction, left parietal lobe, extending into the posterior left temporal lobe. No significant mass effect though there is associated sulcal effacement in this regio n. No midline shift. New mild subarachnoid hemorrhage along the left temporoparietal junction. Moderate generalized atrophy. No hydrocephalus or herniation. There is rightward nasal septal deviati on. Paranasal sinuses and mastoid air cells well pneumatized. IMPRESSION: 1. Maturing acute to subacute infarct on the left frontoparietal junction, left parietal lobe, and ex tending into the posterior left temporal lobe. 2. New mild subarachnoid hemorrhage along the left temporoparietal junction. No midline shift or her niation.
--- NOTE | 2019-10-08 09:12 | CDI ---
Documentation Clarification Form Date: 10/08/19 From: Delores oYu CCS Phone: If you have a question about this query, please contact Pati Valle, Client Support Manager at [phone] between 8am and 5pm. Admit Date: 09/28/19 Discharge Date: 10/01/19 Patient Name: Aurelia Beckwith Visit Number: [id number] ATTENTION: The Clinical Documentation Specialists (CDI) and [facility] Coding Staff appreciate your assistance in clarifying documentation. Please respond to the clarification below the line at the bottom and electronically sign. The CDI & [facility] Coding staff will review the response and follow-up if needed. Please note: Queries are made part of the Legal Health Record. If you have any questions, please contact the author of this message via ITS. Dear Dr. Kolb, Heart failure is documented in the H&P. History/Risk Factors: AFIB, HTN, CVA, CAD Clinical Indicators: Shortness of breath VS/Pulse OX: BP 139/75, RR 18, OH 81, O2 Sat 97 Echocardiogram Results: Left ventricular systolic function is hyperdynamic with an estimated EF of over 70% with some mild mitral and tricuspid regurgitation present. Chest X Ray: Mild heart failure not entirely excluded.Mild cardiomegaly. Treatment: Metoprolol Tartrate 25 mg / 12.5 mg PO BID( resume at home) In your professional opinion, can you please clarify the acuity and type of CHF if known? Systolic Heart Failure: Acute Chronic Acute on Chronic Diastolic Heart Failure: Acute Chronic Acute on Chronic Systolic & Diastolic Heart Failure: Acute Chronic Acute on Chronic Heart Failure Heart failure ruled out Unable to Determine Other, please specify pt care was taken over by dr patel. ALICE/young REYNA
--- NOTE | 2019-10-10 11:42 | CDI ---
Documentation Clarification Form Date: 10/10/19 From: Delores You CCS Phone: If you have a question about this query, please contact Pati Valle, Drywaller at [phone] between 8am and 5pm. Admit Date: 09/28/19 Discharge Date: 10/01/19 Patient Name: Aurelia Beckwith Visit Number: [id number] ATTENTION: The Clinical Documentation Specialists (CDI) and [facility] Coding Staff appreciate your assistance in clarifying documentation. Please respond to the clarification below the line at the bottom and electronically sign. The CDI & [facility] Coding staff will review the response and follow-up if needed. Please note: Queries are made part of the Legal Health Record. If you have any questions, please contact the author of this message via ITS. Dear Dr. Savage, Heart failure is documented in the H&P. History/Risk Factors: AFIB, HTN, CVA, CAD Clinical Indicators: Shortness of breath VS/Pulse OX: BP 139/75, RR 18, NM 81, O2 Sat 97 Echocardiogram Results: Left ventricular systolic function is hyperdynamic with an estimated EF of over 70% with some mild mitral and tricuspid regurgitation present. Chest X Ray: Mild heart failure not entirely excluded.Mild cardiomegaly. Treatment: Metoprolol Tartrate 25 mg / 12.5 mg PO BID( resume at home) In your professional opinion, can you please clarify the acuity and type of CHF if known? Systolic Heart Failure: Acute Chronic Acute on Chronic Diastolic Heart Failure: Acute Chronic Acute on Chronic Systolic & Diastolic Heart Failure: Acute Chronic Acute on Chronic Heart Failure Heart failure ruled out Unable to Determine Other, please specify Diastolic Heart Failure: Chronic MTDD
== END 2019-10-01 14:09 | DRG 64 ==
LOC: EC 17:59 → 3SCARD 19:08 → 5NMEDONC 09-30 18:22
PROVIDERS: ADMIT Hospitalist; ATTEND Hospitalist
DX: I63.512 Cerebral infarction due to unspecified occlusion or stenosis of left middle cerebral artery (principal); I61.9 Nontraumatic intracerebral hemorrhage, unspecified; G81.91 Hemiplegia, unspecified affecting right dominant side; I48.92 Unspecified atrial flutter; I48.21 Permanent atrial fibrillation; I50.32 Chronic diastolic (congestive) heart failure; R47.01 Aphasia; I11.0 Hypertensive heart disease with heart failure; J84.10 Pulmonary fibrosis, unspecified; R47.1 Dysarthria and anarthria; R40.2362 Coma scale, best motor response, obeys commands, at arrival to emergency department; R40.2142 Coma scale, eyes open, spontaneous, at arrival to emergency department; R40.2242 Coma scale, best verbal response, confused conversation, at arrival to emergency department; R29.716 NIHSS score 16; I25.10 Atherosclerotic heart disease of native coronary artery without angina pectoris; E78.5 Hyperlipidemia, unspecified; H54.7 Unspecified visual loss; H35.30 Unspecified macular degeneration; E03.9 Hypothyroidism, unspecified; R13.10 Dysphagia, unspecified; I65.23 Occlusion and stenosis of bilateral carotid arteries; K08.89 Other specified disorders of teeth and supporting structures; I08.3 Combined rheumatic disorders of mitral, aortic and tricuspid valves; R29.703 NIHSS score 3; Z66 Do not resuscitate; Z71.3 Dietary counseling and surveillance; Z79.82 Long term (current) use of aspirin; Z79.890 Hormone replacement therapy; Z79.51 Long term (current) use of inhaled steroids; Z79.02 Long term (current) use of antithrombotics/antiplatelets; Z87.891 Personal history of nicotine dependence; Z79.899 Other long term (current) drug therapy; Z95.5 Presence of coronary angioplasty implant and graft; Z95.1 Presence of aortocoronary bypass graft; Z90.49 Acquired absence of other specified parts of digestive tract; Z98.42 Cataract extraction status, left eye; Z83.3 Family history of diabetes mellitus; Z83.518 Family history of other specified eye disorder; Z82.49 Family history of ischemic heart disease and other diseases of the circulatory system
CPT/HCPCS: 36415; 70450; 70496; 70498; 70551; 71046; 80048; 80053; 80061; 82550; 82553; 83036; 84484; 85025; 85610; 85730; 93005; 93306; 96360; 96361; 99291

== ENCOUNTER → 2019-10-07 | Outpatient (CLI) | payer MEDICARE ==
--- NOTE | 2019-10-07 13:33 | CT ---
EXAMINATION TYPE: CT brain wo con DATE OF EXAM: 10/07/2019 HISTORY: S/P Hemorrhage and/or infarction CT DLP: 1041.0 mGycm. Automated Exposure Control for Dose Reduction was Utilized. TECHNIQUE: CT scan of the head is performed without contrast. COMPARISON: CT brain [address] 9 days ago. FINDINGS: There is background diffuse ventricular and sulcal prominence consistent with diffuse cer ebral atrophy this is most prominent over the bilateral frontal lobes similar to prior. Evolving suba cute infarct left parietal region is less conspicuous on current study near image 34. Prior visualiz ed subarachnoid hemorrhage inferior to this near parietal temporal junction is not seen on current st udy. No new acute intracranial hemorrhage or midline shift. The globes are intact and the visualized sinuses are clear. IMPRESSION: No new acute intracranial hemorrhage or midline shift. There is subacute infarct less p rominent on current study left parietal region. Moderate cerebral atrophy most prominent over the jordan ateral frontal lobes redemonstrated.
== END | disposition home or self-care (01) ==
LOC: RADCTMAIN 12:31
PROVIDERS: ATTEND Family Medicine
DX: I63.89 Other cerebral infarction (principal); G31.89 Other specified degenerative diseases of nervous system
CPT/HCPCS: 70450